=== PATIENT | male | born 1975 | race Caucasian/White ===

== ENCOUNTER 2021-06-28 09:49 | Emergency (ER) | payer OTHER, SELFPAY ==
--- NOTE | ~2021-06-28 | XR_ITS ---
EXAMINATION: XR thoracic spine 3V EXAM DATE: 06/28/2021 10:52 INDICATION: Fell On Ice 06/27/21.Tenderness Upper Back Since. TECHNIQUE: Frontal and lateral projections of the thoracic spine as well as lateral swimmers projecti on of the upper thoracic spine for interpretation. There is no prior study for comparison. FINDINGS: There is minimal anterior wedging of the T12 vertebral body which is more likely chronic or congenital finding than acute compression fracture (there is no step off or cortical break to sugges t it is acute). The vertebral body and disc heights are otherwise well maintained. The vertebral chevy dies are aligned in the AP dimension. Vertebral body and disc heights are well-maintained. Paraspinal soft tissue is unremarkable. IMPRESSION: Minimal anterior wedged appearance of T12, most likely chronic but can't exclude acute c ompression. Reviewed, dictated and finalized at location A. OPERATOR IMPRESSION: Minimal anterior wedged appearance of T12, most likely chronic but can't exclude acute compression.
[2021-06-28 10:00] VITALS: BP 150/100; PULSE 84; RESP 14; TEMP 37.1; O2SAT 98
--- NOTE | 2021-06-28 10:33 | ED.BACK ---
HPI - Back Pain/Injury General Chief Complaint: Back Pain/Injury Stated Complaint: Back pain from fall Time Seen by Provider: 06/28/21 10:12 Source: patient and RN notes reviewed Mode of arrival: ambulatory Limitations: no limitations History of Present Illness HPI Narrative: Patient presents today complaining of upper back pain after falling backwards onto some ice yesterday morning. Denies head injury or loss of consciousness. States he feels that the pain is on his spine instead of in the muscle. Currently rates pain 5/10 and has been taking ibuprofen without relief. Pain increases with movement of the back and neck. Denies numbness or tingling in the extremities. MD elicited complaint: back pain, back injury and fall Related Data Home Medications Medication Instructions Recorded Confirmed amlodipine 5 mg PO DAILY 06/28/21 06/28/21 carvedilol 6.25 mg PO BID 06/28/21 06/28/21 escitalopram oxalate 20 mg PO DAILY 06/28/21 06/28/21 omeprazole 20 mg PO DAILY 06/28/21 06/28/21 pravastatin 10 mg PO DAILY 06/28/21 06/28/21 Allergies Allergy/AdvReac Type Severity Reaction Status Date / Time No Known Allergies Allergy Verified 06/28/21 10:10 Review of Systems Review of Systems: CONSTITUTIONAL: Denies body aches, fever, chills, or sweats. EYES: Denies visual changes, redness, or discharge. ENT: Denies rhinorrhea, congestion, sore throat, or otalgia. CARDIOVASCULAR: Denies chest pain, palpitations, or edema. RESPIRATORY: Denies cough or dyspnea. GASTROINTESTINAL: Denies abdominal pain, nausea, vomiting, or diarrhea. GENITOURINARY: Denies dysuria or hematuria. SKIN: Denies rash, itching, or wounds. MUSCULOSKELETAL: Denies joint pain, or myalgia.+ Upper back injury NEUROLOGIC: Denies headache, numbness, tingling, or weakness. PSYCH: Denies depression or anxiety. [facility] Past Medical History Medical History (Updated 06/28/21 @ 11:12 by Honey Ibarra, POLICE SERVICE TECHNICIAN, ) GERD (gastroesophageal reflux disease) High cholesterol Hypertension Comments At time of signature, I have reviewed and agree with nursing past medical, surgical, social and family history unless otherwise noted. Please see nursing chart for further information. There is no relevant family history pertinent to the presenting complaint Exam Narrative: GENERAL: Well-appearing, well-nourished, and in no acute distress. HEAD: Normocephalic, atraumatic. EYES: EOMI. No redness or drainage. Conjunctivae normal. ENT: Mucous membranes pink and moist. NECK: Normal AROM with increased pain. CHEST: No respiratory distress. MUSCULOSKELETAL: Mild bony tenderness starting at C8 and extending midway down the thoracic spine. Distal sensation intact bilaterally. Capillary refill normal. Radial pulses normal. No ecchymosis or edema noted. EXTREMITIES: Normal range of motion. No edema. SKIN: Warm, dry, no rash. Capillary refill normal. Normal skin turgor. NEURO: No focal deficits. Alert and oriented x3. Gait steady. PSYCH: Normal affect. No signs of depression or anxiety. Course Course Level of Care: Express Care Visit Vital Signs Vital signs: Vital Signs Temperature 98.8 F 06/28/21 10:00 Pulse Rate 84 06/28/21 10:00 Respiratory Rate 14 06/28/21 10:00 Blood Pressure 150/100 H 06/28/21 10:00 Pulse Oximetry 98 06/28/21 10:00 Temperature 98.8 F 06/28/21 10:00 Pulse Rate 84 06/28/21 10:00 Respiratory Rate 14 06/28/21 10:00 Blood Pressure 150/100 H 06/28/21 10:00 Pulse Oximetry 98 06/28/21 10:00 Reviewed. Pt has been instructed to follow up with his PCP regarding his elevated blood pressure today. MDM - Back Pain/Injury Differential Diagnosis Differential diagnosis: Likely other (Contusion, fracture, back strain) Imaging Data Radiologist's impression: ITS Impressions Thoracic Spine X-Ray 06/28/21 10:54 IMPRESSION: Minimal anterior wedged appearance of T12, most likely chronic but can't exclude acute compression.
== END 2021-06-28 11:15 | disposition home or self-care (01) ==
PROVIDERS: Emergency Provider Nurse Practitioner; PCP Internal Medicine
DX: S20.229A Contusion of unspecified back wall of thorax, initial encounter (principal); W00.0XXA Fall on same level due to ice and snow, initial encounter; K21.9 Gastro-esophageal reflux disease without esophagitis; E78.00 Pure hypercholesterolemia, unspecified; I10 Essential (primary) hypertension
CPT/HCPCS: 72072; 99213; G0463